=== PATIENT | female | born 1990 | race Caucasian/White ===

== ENCOUNTER 2016-10-29 10:04 | Emergency (ER) | payer MEDICAID ==
[2016-10-29 10:05] VITALS: BMI 27.4
--- NOTE | 2016-10-29 10:44 | C.PDOC ---
History Of Present Illness 26 y/o female presents to ED with c/o pain and swelling to right inguinal area. Patient notes he has felt a lump in the area for 2 months but it has gotten progressively more painful over the past few days. She reports that she had an IVC filter placed in 01/2016. Admits to "always' shaving that area. Otherwise, denies fever, drainage, or other associated symptoms. (-) vaginal discharge or wound. (-) no hernia Time Seen by Provider: 10/29/16 10:28 Chief Complaint (Nursing): Abnormal Skin Integrity History Per: Patient History/Exam Limitations: no limitations Onset/Duration Of Symptoms: Days Current Symptoms Are (Timing): Worse Location Of Injury: Right: Leg (inguinal area) Quality Of Symptoms: Painful, Swollen. denies: Draining Recent travel outside of the [place]: No Past Medical History Reviewed: Historical Data, Nursing Documentation, Vital Signs Vital Signs: Last Vital Signs Temp 97.9 F 10/29/16 13:30 Pulse 78 10/29/16 13:30 Resp 20 10/29/16 15:38 BP 100/65 10/29/16 13:30 Pulse Ox 97 10/29/16 15:16 - Medical History PMH: Anemia, Anxiety, Asthma, Crohn's Disease, Depression, Deep Vein Thrombosis , Gastritis, Gall Bladder Disease (S/P Cholecystectomy), HTN, Kidney Stones, Pulmonary Embolism, Chronic Kidney Disease Surgical History: Cholecystectomy (2008) - [facility] Procedures APPLICATION OF SPLINT (03/24/14) MONITORING NOS (01/20/13) INSERTION OF INTRALUM DEV INTO INF VENA CAVA, PERC APPROACH (02/02/16) Family History: States: Unknown Family Hx, Diabetes - Social History Hx Tobacco Use: Yes Hx Alcohol Use: No Hx Substance Use: No - Immunization History Hx Tetanus Toxoid Vaccination: Yes Hx Influenza Vaccination: No Hx Pneumococcal Vaccination: No Review Of Systems Except As Marked, All Systems Reviewed And Found Negative. Constitutional: Negative for: Fever, Chills Respiratory: Negative for: Cough Skin: Positive for: Other (painful/swollen mass right inguinal area). Negative for: Rash Physical Exam - Physical Exam Appears: Non-toxic, No Acute Distress Skin: Warm, Dry, Other (2.0 cm indurated masses to the right inguinal area, with surrounding erythema ) Head: Atraumatic, Normacephalic Eye(s): bilateral: Normal Inspection, EOMI Nose: Normal Oral Mucosa: Moist Lymphatic: No Inguinal Node Tenderness Chest: Symmetrical Cardiovascular: Rhythm Regular Respiratory: Normal Breath Sounds, No Rales, No Rhonchi, No Wheezing Gastrointestinal/Abdominal: Soft, No Tenderness, No Hernia Back: Normal Inspection Pelvic: Normal External Exam Extremity: Normal ROM, Capillary Refill (< 2 sec.) Extremity: Bilateral: Normal Color And Temperature Pulses: Left Dorsalis Pedis: Normal, Right Dorsalis Pedis: Normal Neurological/Psych: Oriented x3, Normal Speech, Normal Cognition ED Course And Treatment - Laboratory Results Result Diagrams: 10/29/16 11:29 10/29/16 11:29 O2 Sat by Pulse Oximetry: 97 (RA) Pulse Ox Interpretation: Normal - CT Scan/US CT Pelvis w/o contrast Other Rad Studies (CT/US): Read By Radiologist, Radiology Report Reviewed CT/US Interpretation: Accession No. : [id number]. Patient Name / ID : ALFIE RJOO / [id number]. Exam Date : 10/29/2016 13:20:56 ( Approved ). Study Comment : Sex / Age : F / 26Y. Creator : SVETLANA MCELROY. Dictator : [employer]ire Fixer : Director Of Occupational Health : SVETLANA MCELROY. Approver2 : Report Date : 10/29/2016 14:19:00. My Comment : . [facility] Division of Radiology. [address] [place] [address]. Tel. no. . . . Patient Name: ALIA JUDGE . Pt. Address: [address] [place] [address] Rec # : [id number]. [place] [address]: Marylin Mcbride PA-C. Pt Order Location: [facility]. : 1990 Female Age: 26 Order #: [id number]. Reason for exam: Right inguinal swelling, r/o abscess. . . . . . CT Scan. . . PELVIS W/O PO OR IV CONTRAST Exam Date: 10/29/16. . This imaging exam was performed at [facility]. EXAM: CT Pelvis Without Intravenous Contrast. . CLINICAL HISTORY: 26 years old, female; Pain; Pelvic pain; Additional info: Right inguinal. swelling, R/O abscess. Patient allergic to contrast. . TECHNIQUE: Axial computed tomography images of the pelvis without intravenous contrast. This CT exam was performed using one or more of the following dose reduction. techniques: automated exposure control, adjustment of the mA and/or kV. according to patient size, and/or use of iterative reconstruction technique. Coronal and sagittal reformatted images were created and reviewed. . EXAM DATE /TIME: Exam ordered 10/29/2016 10:37 AM. . COMPARISON: CT - ABD PELVIS PO IV CON 02/03/2015 1:48:11 AM. . FINDINGS: Bowel: Unremarkable. No obstruction. No mucosal thickening. Appendix: No findings to suggest acute appendicitis. Intraperitoneal space: Unremarkable. No free air. No significant fluid. collection. Bladder: Unremarkable. No stones. Reproductive: Unremarkable as visualized. Bones/joints: No acute fracture. No dislocation. Soft tissues: There is a fluid collection noted medial to the gracilis. muscle proximally. Fluid collection measures 1.9 x 1.9 x 3.3 cm. There is. inflammatory stranding noted of the overlying subcutaneous fat with what. appears to be a small fistula track connecting to the skin. The inflammatory. stranding is contiguous with and not from the adjacent muscle. The. muscle appears normal in density. Vasculature: Unremarkable. No lower abdominal aortic aneurysm. Lymph nodes: Subcentimeter inguinal lymph nodes are present. . IMPRESSION: 1. Small subcutaneous abscess noted the area of soft tissue swelling. Inflammatory extension into the contiguous myofascial covering of the gracilis. muscle is likely. Progress Note: CT scan and labs ordered, reviewed. Pt notes she is allergic to dye (oral and IV), CT ordered w/o contrast. I&D performed. Packing applied. Instructed wound check in2 days. Case discussed with Dr. Domingo who agreed upon discharge and follow up outpatient. - Incision & Drainage Of Abscess Anesthesia: Lidocaine 1%, With Epi Prep Used: Sterile Water, Betadine Procedure: Incised W/Scalpel Blade#: (11), Drained Pus, Irrigated Cavity W/ Saline, Probed To Break Up Loculations, Packed W/Gauze, Cultures Obtained And Sent To Lab Disposition - Disposition Referrals: Perico Domingo MD [Staff Provider] - Disposition: HOME/ ROUTINE Disposition Time: 15:13 Condition: STABLE Additional Instructions: Do not shave that area. Do not get that area wet. Return to ER in 2 days for re- evaluation. Prescriptions: Cephalexin [cephalexin] 500 mg PO BID #14 cap Sulfamethoxazole/Trimethoprim [Bactrim DS 800 mg-160 mg] 1 tab PO BID #14 tab Instructions: Abscess (ED) - Clinical Impression Clinical Impression: Abscess - PA / HOME STAGER / Resident Statement / has reviewed & agrees with the documentation as recorded. - Scribe Statement The provider has reviewed the documentation as recorded by the Remyibtanisha Waggoner All medical record entries made by the Remyibtanisha were at my direction and personally dictated by me. I have reviewed the chart and agree that the record accurately reflects my personal performance of the history, physical exam, medical decision making, and the department course for this patient. I have also personally directed, reviewed, and agree with the discharge instructions and disposition.
[2016-10-29 11:45] LABS: CHLORIDE 105 mmol/L (98-107); SODIUM 139 mmol/L (132-148)
[2016-10-29 11:46] LABS: POTASSIUM 4.1 mmol/L (3.6-5.2)
[2016-10-29 11:48] LABS: ALB/GLOB RATIO 1.5 (1.0-2.1); ALKALINE PHOSPHATASE 69 U/L (38-126); ALT/SGPT 14 U/L (9-52); AST/SGOT 31 U/L (14-36); BLOOD UREA NITROGEN 9 mg/dL (7-17); CARBON DIOXIDE 21 mmol/L (22-30); GFR AFRICAN-AMERICAN > 60; GLUCOSE,RANDOM 93 mg/dL (65-105)
[2016-10-29 11:49] LABS: CALCIUM 9.2 mg/dl (8.6-10.4)
[2016-10-29 12:06] LABS: BASO % 0.4 % (0.0-2.0); EOS # 0.1 K/uL (0.0-0.7); EOS % 1.5 % (0.0-4.0); HEMATOCRIT 43.3 % (34.0-47.0); LYMPH # 1.9 K/uL (1.0-4.3); LYMPH % 21.6 % (20.0-40.0); MEAN CORPUSCULAR HEMOGLOBIN 30.3 pg (27.0-31.0); MEAN PLATELET VOLUME 11.4 fL (7.2-11.7); MONO # 0.5 K/uL (0.0-0.8); MONO % 5.9 % (0.0-10.0); RED CELL DISTRIBUTION WIDTH 13.6 % (11.5-14.5); WHITE BLOOD COUNT 8.8 K/uL (4.8-10.8)
[2016-10-29 13:36] VITALS: BP 100/65; PULSE 78; TEMP 97.9
--- NOTE | 2016-10-29 14:19 | CT ---
EXAM: CT Pelvis Without Intravenous Contrast CLINICAL HISTORY: 26 years old, female; Pain; Pelvic pain; Additional info: Right inguinal swelling, R/O abscess. Patient allergic to contrast TECHNIQUE: Axial computed tomography images of the pelvis without intravenous contrast. This CT exam was performed using one or more of the following dose reduction techniques: automated exposure control, adjustment of the mA and/or kV according to patient size, and/or use of iterative reconstruction technique. Coronal and sagittal reformatted images were created and reviewed. EXAM DATE/TIME: Exam ordered 10/29/2016 10:37 AM COMPARISON: CT - ABD PELVIS PO IV CON 02/03/2015 1:48:11 AM FINDINGS: Bowel: Unremarkable. No obstruction. No mucosal thickening. Appendix: No findings to suggest acute appendicitis. Intraperitoneal space: Unremarkable. No free air. No significant fluid collection. Bladder: Unremarkable. No stones. Reproductive: Unremarkable as visualized. Bones/joints: No acute fracture. No dislocation. Soft tissues: There is a fluid collection noted medial to the gracilis muscle proximally. Fluid collection measures 1.9 x 1.9 x 3.3 cm. There is inflammatory stranding noted of the overlying subcutaneous fat with what appears to be a small fistula track connecting to the skin. The inflammatory stranding is contiguous with and not from the adjacent muscle. The muscle appears normal in density. Vasculature: Unremarkable. No lower abdominal aortic aneurysm. Lymph nodes: Subcentimeter inguinal lymph nodes are present. IMPRESSION: 1. Small subcutaneous abscess noted the area of soft tissue swelling. Inflammatory extension into the contiguous myofascial covering of the gracilis muscle is likely. Images were attached to this report and are available at [email or web address]
[2016-10-29] MEDS ORDERED: Lidocaine 1% w Epi 1:100,000 Inj INJ ONE (14:30)
[2016-10-29] MEDS ORDERED: cefTRIAXone IV 1 gm in Dextros 50 ML IV ONE (14:30)
[2016-10-29 14:34] VITALS: O2SAT 97
[2016-10-29] MEDS ORDERED: Lidocaine 2% w Epi 1:100,000 Inj IJ ONE (14:37)
[2016-10-29] MEDS ORDERED: cefTRIAXone IV 1 gm in Dextros 50 ML IVPB ONE (14:38)
[2016-10-29] MEDS ORDERED: Morphine 4 MG/ML VIAL ONE (14:44)
[2016-10-29 15:39] VITALS: RESP 20
== END 2016-10-29 15:38 | disposition home or self-care (01) ==
LOC: C.ER 10:04
DX: L02.214 Cutaneous abscess of groin (principal); B95.7 Other staphylococcus as the cause of diseases classified elsewhere
CPT/HCPCS: 10060; 72192; 80053; 85025; 87070; 96374; 99285; J0696; J2270

== ENCOUNTER 2016-11-13 00:48 | Emergency (ER) | payer MEDICAID ==
[2016-11-13 00:49] VITALS: BMI 27.4
[2016-11-13] MEDS ORDERED: Sodium Chloride 0.9% 1,000 ML IV ONE (01:29)
--- NOTE | 2016-11-13 01:29 | C.PDOC ---
History Of Present Illness Patient presents to the ED with complaints of vaginal bleeding and abdominal pain since this morning. Patient states she was wearing a corset today for a couple of hours and felt abdominal pain. Patient denies any fever, chills, nausea, or vomiting. Time Seen by Provider: 11/13/16 01:29 Chief Complaint (Nursing): Female Genitourinary History Per: Patient History/Exam Limitations: no limitations Onset/Duration Of Symptoms: Hrs Current Symptoms Are (Timing): Still Present Severity: Moderate Pain Scale Rating Of: 4 Quality Of Discomfort: "Pain" Associated Symptoms: denies: Fever, Chills, Nausea, Vomiting Recent travel outside of the [place]: No Abnormal Vaginal Bleeding: Yes Past Medical History Reviewed: Historical Data, Nursing Documentation, Vital Signs Vital Signs: Last Vital Signs Temp 98 F 11/13/16 00:57 Pulse 18 L 11/13/16 00:57 Resp 100 H 11/13/16 00:57 BP 111/74 11/13/16 00:57 Pulse Ox 100 11/13/16 04:05 - Medical History PMH: Anemia, Anxiety, Asthma, Crohn's Disease, Depression, Deep Vein Thrombosis , Gastritis, Gall Bladder Disease (S/P Cholecystectomy), HTN, Kidney Stones, Pulmonary Embolism, Chronic Kidney Disease Surgical History: Cholecystectomy (2008) - [facility] Procedures APPLICATION OF SPLINT (03/24/14) MONITORING NOS (01/20/13) INSERTION OF INTRALUM DEV INTO INF VENA CAVA, PERC APPROACH (02/02/16) Family History: States: Unknown Family Hx, Diabetes - Social History Hx Tobacco Use: Yes Hx Alcohol Use: No Hx Substance Use: No - Immunization History Hx Tetanus Toxoid Vaccination: Yes Hx Influenza Vaccination: No Hx Pneumococcal Vaccination: No Review Of Systems Constitutional: Negative for: Fever, Chills Cardiovascular: Negative for: Chest Pain, Palpitations Respiratory: Negative for: Cough, Shortness of Breath Gastrointestinal: Positive for: Abdominal Pain. Negative for: Nausea, Vomiting , Diarrhea Genitourinary: Positive for: Vaginal Bleeding Physical Exam - Physical Exam Appears: Non-toxic, In Acute Distress (patient appears to be in mild discomfort ) Skin: Warm, Dry Head: Atraumatic Oral Mucosa: Moist Neck: Supple Chest: Symmetrical, No Deformity Cardiovascular: Rhythm Regular Respiratory: No Rales, No Rhonchi, No Wheezing Gastrointestinal/Abdominal: Soft, Tenderness (diffuse abdominal tenderness ), No Distention, No Guarding, No Rebound Extremity: Normal ROM, No Tenderness, No Pedal Edema, No Calf Tenderness, Capillary Refill (good capillary refill, less than two seconds ), No Deformity, No Swelling Pulses: Left Dorsalis Pedis: Normal, Right Dorsalis Pedis: Normal Neurological/Psych: Oriented x3 ED Course And Treatment - Laboratory Results Result Diagrams: 11/13/16 01:53 11/13/16 01:55 O2 Sat by Pulse Oximetry: 100 (room air ) Pulse Ox Interpretation: Normal Reevaluation Time: 04:05 Reassessment Condition: Improved Medical Decision Making Medical Decision Making: Upon provider reevaluation patient is feeling better, is medically stable, and requires no further treatment in the ED at this time. Patient will be discharged home with Rx for macrobid and tramadol . Counseling was provided and all questions were answered regarding diagnosis and need for follow up with dr jaime. There is agreement to discharge plan. Return if symptoms persist or worsen. Disposition Counseled Patient/Family Regarding: Studies Performed, Diagnosis, Need For Followup, Rx Given - Disposition Referrals: Perico Jaime MD [Staff Provider] - Disposition: HOME/ ROUTINE Disposition Time: 01:29 Condition: FAIR Additional Instructions: Please return if symptoms recur Prescriptions: Nitrofurantoin Macrocrystals [Macrobid] 1 cap PO BID #14 cap RX: traMADol [Ultram] 50 mg PO TID #15 tab Instructions: Urinary Tract Infection in Women (DC) - Clinical Impression Clinical Impression: UTI (urinary tract infection) - Scribe Statement The provider has reviewed the documentation as recorded by the Scribtanisha De Santiago All medical record entries made by the Scribe were at my direction and personally dictated by me. I have reviewed the chart and agree that the record accurately reflects my personal performance of the history, physical exam, medical decision making, and the department course for this patient. I have also personally directed, reviewed, and agree with the discharge instructions and disposition.
[2016-11-13 01:31] LABS: HCG,QUALITATIVE URINE NEGATIVE (NEGATIVE); SQUAMOUS EPITHIAL 54 /hpf (0-5); URINE BILIRUBIN NEGATIVE (NEGATIVE); URINE BLOOD 3+ (NEGATIVE); URINE CLARITY Hazy (Clear); URINE COLOR Yellow (YELLOW); URINE GLUCOSE (UA) NORMAL (Normal); URINE LEUKOCYTE ESTERASE 3+ Leu/uL (Negative); URINE NITRATE NEGATIVE (NEGATIVE); URINE PROTEIN 1+ mg/dL (NEGATIVE); URINE UROBILINOGEN NORMAL mg/dL (0.2-1.0)
[2016-11-13] MEDS ORDERED: Piperacillin/Tazobact 3.375 gm 100 ML IVPB STA (01:39)
[2016-11-13] MEDS ORDERED: Piperacillin/Tazobact 3.375 gm 100 ML IVPB ONE (01:56)
[2016-11-13 01:57] LABS: BASO % 0.4 % (0.0-2.0); EOS # 0.2 K/uL (0.0-0.7); MEAN CELL VOLUME 90.6 fL (81.0-99.0); MEAN CORPUSCULAR HEMOGLOBIN 30.5 pg (27.0-31.0); MEAN CORPUSCULAR HGB CONC 33.7 g/dL (33.0-37.0); MEAN PLATELET VOLUME 11.6 fL (7.2-11.7); MONO # 0.4 K/uL (0.0-0.8); MONO % 5.2 % (0.0-10.0); NEUT # 4.8 K/uL (1.8-7.0); NEUT % 56.4 % (50.0-75.0); NRBC % 0.1 % (0.0-2.0); RBC 4.26 Mil/uL (3.80-5.20); RED CELL DISTRIBUTION WIDTH 13.3 % (11.5-14.5); WHITE BLOOD COUNT 8.4 K/uL (4.8-10.8)
[2016-11-13] MEDS ORDERED: Sodium Chloride 0.9% 1,000 ML ONE (02:05)
[2016-11-13 02:09] LABS: ALBUMIN 4.3 g/dL (3.5-5.0)
[2016-11-13 02:12] LABS: ALB/GLOB RATIO 1.2 (1.0-2.1); AST/SGOT 38 U/L (14-36); GFR AFRICAN-AMERICAN > 60; GFR NON-AFRICAN AMERICAN > 60
[2016-11-13 02:13] LABS: ALT/SGPT 29 U/L (9-52); BLOOD UREA NITROGEN 16 mg/dL (7-17); LIPASE 81 U/L (23-300)
[2016-11-13 04:39] VITALS: BP 100/63; PULSE 80; RESP 20; TEMP 97.5; O2SAT 99
== END 2016-11-13 04:39 | disposition home or self-care (01) ==
LOC: C.ER 00:48
DX: N39.0 Urinary tract infection, site not specified (principal)
CPT/HCPCS: 80053; 81001; 83690; 84703; 85025; 86850; 86900; 87086; 96365; 96375; 99284; J1885; J2543; J7040

== ENCOUNTER 2016-11-19 12:08 | Emergency (ER) | payer MEDICAID ==
[2016-11-19 12:52] VITALS: BMI 28.3
[2016-11-19 12:55] VITALS: TEMP 98.7
[2016-11-19] MEDS ORDERED: guaiFENesin 100 mg/5 ml Syrup UD PO STA (13:09)
--- NOTE | 2016-11-19 13:10 | C.PDOC ---
History Of Present Illness 26 y/o female presents to the ED with complaints of coryza, nonproductive cough and nasal congestion x1 week with associated chest discomfort. Pt reports sick contacts with similar symptoms. Pt also with draining wound to right groin, incised and packed recently, packing fell out and pt has completed abx. Denies fever, chills, vomiting or any other complaints, Time Seen by Provider: 11/19/16 12:59 Chief Complaint (Nursing): Cough, Cold, Congestion History Per: Patient History/Exam Limitations: no limitations Onset/Duration Of Symptoms: Days Current Symptoms Are (Timing): Still Present Location Of Pain: None Sick Contacts (Context): Family Member(s) Associated Symptoms: Cough, Nasal Congestion. denies: Fever, Chills, Sputum, Vomiting Severity: Mild Recent travel outside of the [place]: No Past Medical History Reviewed: Historical Data, Nursing Documentation, Vital Signs Vital Signs: Last Vital Signs Temp 98.7 F 11/19/16 12:54 Pulse 89 11/19/16 13:30 Resp 18 11/19/16 13:30 BP 124/75 11/19/16 13:30 Pulse Ox 98 11/19/16 13:30 - Medical History PMH: Anemia, Anxiety, Asthma, Crohn's Disease, Depression, Deep Vein Thrombosis , Gastritis, Gall Bladder Disease (S/P Cholecystectomy), HTN, Kidney Stones, Pulmonary Embolism, Chronic Kidney Disease Surgical History: Cholecystectomy (2008) - [facility] Procedures APPLICATION OF SPLINT (03/24/14) MONITORING NOS (01/20/13) INSERTION OF INTRALUM DEV INTO INF VENA CAVA, PERC APPROACH (02/02/16) Family History: States: Unknown Family Hx, Diabetes - Social History Hx Tobacco Use: Yes Hx Alcohol Use: No Hx Substance Use: No - Immunization History Hx Tetanus Toxoid Vaccination: Yes Hx Influenza Vaccination: No Hx Pneumococcal Vaccination: No Review Of Systems Except As Marked, All Systems Reviewed And Found Negative. Constitutional: Negative for: Fever, Chills ENT: Positive for: Nose Congestion Cardiovascular: Positive for: Other (chest discomfort) Respiratory: Positive for: Cough. Negative for: Shortness of Breath, Sputum Gastrointestinal: Negative for: Vomiting Skin: Positive for: Other (draining wound right groin) Physical Exam - Physical Exam Appears: Non-toxic, No Acute Distress Skin: Warm, Dry, No Rash Head: Atraumatic, Normacephalic Ear(s): Bilateral: Normal Nose: Normal Oral Mucosa: Moist Throat: Normal, No Erythema Neck: Normal, Normal ROM, Supple Chest: Symmetrical, Tenderness (digitally reproducible pain to sternum) Cardiovascular: Rhythm Regular, No Murmur Respiratory: Normal Breath Sounds, No Rales, No Rhonchi, No Wheezing Extremity: Other (Right groin with 1 cm area draining clear serosanguanous fluid , no fluctuance or pus; Chaperoned by CRISTOBAL Soriano.) Neurological/Psych: Oriented x3, Normal Speech ED Course And Treatment O2 Sat by Pulse Oximetry: 97 (room air) Pulse Ox Interpretation: Normal Medical Decision Making Medical Decision Making: c/c/c, multiple sick contacts @ home with same. OTC flu/cold meds instructed Resolving R groin abscess, small drainage, nothing to I&D today daily cleaning/bandage educated. Disposition Doctor Will See Patient In The: Office Counseled Patient/Family Regarding: Studies Performed, Diagnosis - Disposition Referrals: [facility] [Outside] Disposition: HOME/ ROUTINE Disposition Time: 13:10 Condition: GOOD Additional Instructions: OTC flu/cold meds avoid cigarette smoking as much as possible Wound: Daily wash with soap and water Bacitracin ointment and clean bandage daily. Instructions: Chronic Wound Care (ED), Viral Syndrome (ED) - Clinical Impression Clinical Impression: Influenza-like illness, Wound of skin - Scribe Statement The provider has reviewed the documentation as recorded by the Marjorie gallardo Provider Attestation: All medical record entries made by the Marjorie were at my direction and personally dictated by me. I have reviewed the chart and agree that the record accurately reflects my personal performance of the history, physical exam, medical decision making, and the department course for this patient. I have also personally directed, reviewed, and agree with the discharge instructions and disposition.
[2016-11-19] MEDS ORDERED: Bacitracin 500 Units/gm Oint Foilpak UD ONE (13:12)
[2016-11-19] MEDS ORDERED: guaiFENesin 100 mg/5 ml Syrup UD ONE (13:12)
[2016-11-19 13:31] VITALS: BP 124/75; PULSE 89; RESP 18
[2016-11-19 13:44] VITALS: O2SAT 97
== END 2016-11-19 13:31 | disposition home or self-care (01) ==
LOC: SUPCPDRO 12:08 → C.ER 12:08
DX: J11.1 Influenza due to unidentified influenza virus with other respiratory manifestations (principal); S31.103D Unspecified open wound of abdominal wall, right lower quadrant without penetration into peritoneal cavity, subsequent encounter; X58.XXXD Exposure to other specified factors, subsequent encounter

== ENCOUNTER 2016-12-22 20:04 | Emergency (ER) | payer MEDICAID ==
[2016-12-22 20:05] VITALS: BMI 28.3
--- NOTE | 2016-12-22 20:29 | C.PDOC ---
History Of Present Illness Patient presents to the ED with complaints of right flank pain radiating to RLQ with some associated nausea and dysuria beginning yesterday that has worsening through the day. Patient denies fever,chills, or nausea. Time Seen by Provider: 12/22/16 20:29 Chief Complaint (Nursing): Female Genitourinary History Per: Patient History/Exam Limitations: no limitations Onset/Duration Of Symptoms: Days (1 day), Worse Since (worsening today) Current Symptoms Are (Timing): Still Present Severity: Moderate Pain Scale Rating Of: 5 Quality Of Discomfort: Sharp, Stabbing Alleviating Factors: None Recent travel outside of the [place]: No Abnormal Vaginal Bleeding: No Past Medical History Reviewed: Historical Data, Nursing Documentation, Vital Signs Vital Signs: Last Vital Signs Temp 98.0 F 12/22/16 23:39 Pulse 60 12/22/16 23:39 Resp 16 12/22/16 23:39 BP 101/60 12/22/16 23:39 Pulse Ox 99 12/22/16 23:39 - Medical History PMH: Anemia, Anxiety, Asthma, Crohn's Disease, Depression, Deep Vein Thrombosis , Gastritis, Gall Bladder Disease (S/P Cholecystectomy), HTN, Kidney Stones, Pulmonary Embolism, Chronic Kidney Disease Surgical History: Cholecystectomy (2008) - [facility] Procedures APPLICATION OF SPLINT (03/24/14) MONITORING NOS (01/20/13) INSERTION OF INTRALUM DEV INTO INF VENA CAVA, PERC APPROACH (02/02/16) Family History: States: Unknown Family Hx, Diabetes - Social History Hx Tobacco Use: Yes Hx Alcohol Use: No Hx Substance Use: No - Immunization History Hx Tetanus Toxoid Vaccination: Yes Hx Influenza Vaccination: No Hx Pneumococcal Vaccination: No Review Of Systems Constitutional: Negative for: Fever, Chills Cardiovascular: Negative for: Chest Pain Respiratory: Negative for: Shortness of Breath Gastrointestinal: Positive for: Nausea, Abdominal Pain (right flank radiating to RLQ). Negative for: Vomiting, Diarrhea Genitourinary: Positive for: Dysuria. Negative for: Hematuria, Vaginal Bleeding Physical Exam - Physical Exam Appears: Non-toxic, No Acute Distress, Other (Patient is tolerating PO ) Skin: Warm, Dry Head: Atraumatic Eye(s): bilateral: Normal Inspection Oral Mucosa: Moist Neck: Supple Chest: Symmetrical Cardiovascular: Rhythm Regular Respiratory: No Rales, No Rhonchi, No Wheezing Gastrointestinal/Abdominal: Soft, Tenderness (Right flank area tenderness radiating to right groin area. ), No Distention, No Guarding, No Rebound Neurological/Psych: Oriented x3 ED Course And Treatment - Laboratory Results Result Diagrams: 12/22/16 20:56 12/22/16 20:56 O2 Sat by Pulse Oximetry: 98 (room air ) Pulse Ox Interpretation: Normal Reevaluation Time: 23:43 Reassessment Condition: Improved Disposition Counseled Patient/Family Regarding: Studies Performed, Diagnosis, Need For Followup - Disposition Referrals: Perico Domingo MD [Staff Provider] - Disposition: HOME/ ROUTINE Disposition Time: 20:29 Condition: FAIR Prescriptions: Nitrofurantoin Macrocrystals [Macrobid] 1 cap PO BID #14 cap Instructions: Ovarian Cyst (ED), Urinary Tract Infection in Women (DC) Forms: [facility] (Tunisian) - Clinical Impression Clinical Impression: Abdominal pain, Ovarian cyst, UTI (urinary tract infection) - Scribe Statement The provider has reviewed the documentation as recorded by the Scribe Kathy De Santiago All medical record entries made by the Scribe were at my direction and personally dictated by me. I have reviewed the chart and agree that the record accurately reflects my personal performance of the history, physical exam, medical decision making, and the department course for this patient. I have also personally directed, reviewed, and agree with the discharge instructions and disposition.
[2016-12-22] MEDS ORDERED: Sodium Chloride 0.9% 1,000 ML IV ONE ×2 (20:31→21:55)
[2016-12-22 20:56] LABS: URINE BILIRUBIN NEGATIVE (NEGATIVE); URINE BLOOD NEGATIVE (NEGATIVE); URINE COLOR Yellow (YELLOW); URINE GLUCOSE (UA) NORMAL (Normal); URINE KETONE NEGATIVE (NEGATIVE); URINE LEUKOCYTE ESTERASE NEG Leu/uL (Negative); URINE PROTEIN NEGATIVE (NEGATIVE); URINE UROBILINOGEN NORMAL mg/dL (0.2-1.0); WBC URINE < 1 /hpf (0-5)
[2016-12-22] MEDS ORDERED: Sodium Chloride 0.9% 1,000 ML ONE (20:58)
[2016-12-22 21:02] LABS: BASO % 0.4 % (0.0-2.0); EOS # 0.1 K/uL (0.0-0.7); EOS % 1.6 % (0.0-4.0); HEMATOCRIT 40.2 % (34.0-47.0); LYMPH # 2.9 K/uL (1.0-4.3); LYMPH % 33.9 % (20.0-40.0); MEAN CELL VOLUME 89.4 fL (81.0-99.0); MEAN CORPUSCULAR HEMOGLOBIN 30.6 pg (27.0-31.0); MEAN CORPUSCULAR HGB CONC 34.2 g/dL (33.0-37.0); MEAN PLATELET VOLUME 11.5 fL (7.2-11.7); MONO # 0.6 K/uL (0.0-0.8); MONO % 6.4 % (0.0-10.0); RED CELL DISTRIBUTION WIDTH 13.7 % (11.5-14.5); WHITE BLOOD COUNT 8.6 K/uL (4.8-10.8)
[2016-12-22 21:14] LABS: CHLORIDE 101 mmol/L (98-107); POTASSIUM 3.4 mmol/L (3.6-5.2); SODIUM 141 mmol/L (132-148)
[2016-12-22 21:16] LABS: BILIRUBIN,TOTAL 0.4 mg/dL (0.2-1.3); GFR AFRICAN-AMERICAN > 60
[2016-12-22 21:17] LABS: ALB/GLOB RATIO 1.3 (1.0-2.1); ALKALINE PHOSPHATASE 94 U/L (38-126); ALT/SGPT 24 U/L (9-52); AST/SGOT 29 U/L (14-36); BLOOD UREA NITROGEN 11 mg/dL (7-17); CALCIUM 9.6 mg/dl (8.6-10.4); CARBON DIOXIDE 25 mmol/L (22-30); GLUCOSE,RANDOM 90 mg/dL (65-105); TOTAL PROTEIN 7.7 g/dL (6.3-8.3)
[2016-12-22] MEDS ORDERED: Potassium Chloride 10 mEq ER Tab PO STA (21:57)
[2016-12-22] MEDS ORDERED: Potassium Chloride 20 mEq ER Tab PO ONE (22:16)
[2016-12-22] MEDS ORDERED: Morphine 4 MG/ML VIAL ONE (22:16)
--- NOTE | 2016-12-22 23:01 | CT ---
EXAM: CT Abdomen and Pelvis Without Intravenous Contrast CLINICAL HISTORY: 26 years old, female; Pain; Abdominal pain; Flank; Right; Additional info: R flank pain TECHNIQUE: Axial computed tomography images of the abdomen and pelvis without intravenous contrast. All CT scans at this facility use one or more dose reduction techniques, viz.: automated exposure control; ma/kV adjustment per patient size (including targeted exams where dose is matched to indication; i.e. head); or iterative reconstruction technique. Coronal and sagittal reformatted images were created and reviewed. EXAM DATE/TIME: 12/22/2016 9:55 PM COMPARISON: US - OB , LIMITED 09/22/2015 6:56:18 AM FINDINGS: IVC filter. Cholecystectomy clips are present. The liver is borderline prominent. The spleen is prominent. The adrenals and pancreas appear grossly normal on this non-contrast study. No perinephric stranding. No hydronephrosis. No obstructing calculi. The bowel appears grossly normal. A normal appendix is identified axial image [id number], coronal images 45 - 55. There is suggestion of a 2 cm right ovarian cyst. Evaluation of the ovaries is limited on noncontrast CT . The uterus is prominent. Small inguinal lymph nodes are noted. IMPRESSION: Probable right ovarian cyst.
[2016-12-22] MEDS ORDERED: HYDROmorphone 1 mg/ml ISec IVP STA (23:16)
[2016-12-22] MEDS ORDERED: HYDROmorphone 1 mg/ml ISec ONE (23:32)
[2016-12-22 23:40] VITALS: BP 101/60; PULSE 60; RESP 16; TEMP 98
[2016-12-22 23:46] VITALS: O2SAT 98
== END 2016-12-23 00:27 | disposition home or self-care (01) ==
LOC: C.ER 20:04
DX: N83.209 Unspecified ovarian cyst, unspecified side (principal); N39.0 Urinary tract infection, site not specified; E87.6 Hypokalemia
CPT/HCPCS: 74176; 80053; 81001; 83690; 84703; 85025; 87086; 96361; 96374; 96375; 99284; J1170; J1885; J2270; J2405; J7040

== ENCOUNTER 2017-01-16 19:54 | Emergency (ER) | payer MEDICAID ==
[2017-01-16 19:54] VITALS: BMI 28.3
--- NOTE | 2017-01-16 21:07 | C.PDOC ---
History Of Present Illness Irma is a 26 y/o female with a past medical history of DVT, PE, ovarian cyst, kidney stones, Crohns disease, and depression, who presents to the ED complaining of right flank pain, daily for 3 weeks. Pain is associated with dysuria and vomiting after meals, worsens with movement. Patient last ate at 6: 30 and is attempting to keep the meal down. Denies fever, chills, vaginal discharge or bleeding. Took Motrin and Tylenol with some relief. LMP was 01/11. Of note, patient was seen here on 12/22 for same complaints, had CT and labs, and was diagnosed with an ovarian cyst and UTI. PMD: Perico Domingo Time Seen by Provider: 01/16/17 20:25 Chief Complaint (Nursing): Abdominal Pain History Per: Patient History/Exam Limitations: no limitations Onset/Duration Of Symptoms: Days (x 2) Current Symptoms Are (Timing): Still Present Location Of Pain/Discomfort: RUQ, RLQ Radiation Of Pain To:: Back Past Medical History Reviewed: Historical Data, Nursing Documentation, Vital Signs Vital Signs: Last Vital Signs Temp 98.3 F 01/16/17 20:03 Pulse 82 01/16/17 20:03 Resp 20 01/16/17 20:03 BP 123/73 01/16/17 20:03 Pulse Ox 97 01/16/17 23:37 - Medical History PMH: Anemia, Anxiety, Asthma, Crohn's Disease, Depression, Deep Vein Thrombosis (BOTH LEGS), Gastritis, Gall Bladder Disease (S/P Cholecystectomy), HTN, Kidney Stones, Pulmonary Embolism, Chronic Kidney Disease Surgical History: Cholecystectomy (2008) - [facility] Procedures APPLICATION OF SPLINT (03/24/14) MONITORING NOS (01/20/13) INSERTION OF INTRALUM DEV INTO INF VENA CAVA, PERC APPROACH (02/02/16) Family History: States: Unknown Family Hx, Diabetes - Social History Hx Tobacco Use: Yes Hx Alcohol Use: No Hx Substance Use: No - Immunization History Hx Tetanus Toxoid Vaccination: Yes Hx Influenza Vaccination: No Hx Pneumococcal Vaccination: No Review Of Systems Except As Marked, All Systems Reviewed And Found Negative. Constitutional: Negative for: Fever, Chills Gastrointestinal: Positive for: Vomiting (after meals), Abdominal Pain Genitourinary: Positive for: Dysuria Musculoskeletal: Positive for: Back Pain (right flank) Physical Exam - Physical Exam Appears: Well, Non-toxic, No Acute Distress Skin: Normal Color, Warm, Dry Head: Atraumatic, Normacephalic Eye(s): bilateral: Normal Inspection, PERRL, EOMI Nose: Normal Oral Mucosa: Moist Neck: Normal, Normal ROM Chest: Symmetrical Cardiovascular: Rhythm Regular (Slightly tachycardic), No Friction Rub, No Murmur, No Other (Gallop) Respiratory: Normal Breath Sounds (clear to auscultation bilaterally), No Accessory Muscle Use Gastrointestinal/Abdominal: Bowel Sounds (+ all 4 quadrants), Soft, Tenderness ( tenderness to the RLQ and RUQ), No Other (Palomo's sign) Back: CVA Tenderness (right-sided) Extremity: Normal ROM, No Deformity Neurological/Psych: Oriented x3, Normal Speech Gait: Steady ED Course And Treatment - Laboratory Results Result Diagrams: 01/16/17 21:25 01/16/17 21:25 Lab Interpretation: Normal O2 Sat by Pulse Oximetry: 97 Pulse Ox Interpretation: Normal - CT Scan/US CT abd/pel Other Rad Studies (CT/US): Read By Radiologist, Radiology Report Reviewed CT/US Interpretation: FINDINGS: Lower thorax: unremarkable. ABDOMEN: Liver: unremarkable. Gallbladder and bile ducts: Gallbladder is absent. Common duct is unremarkable. Pancreas: unremarkable. Spleen: Spleen is mildly enlarged. Adrenals: unremarkable. Kidneys and ureters: unremarkable. Stomach and bowel: The stomach is partially distended. Rotation is normal. There is no obstruction. Appendix and terminal ileum are unremarkable. Colon is incompletely distended which limits. evaluation. Appendix: See stomach and bowel. PELVIS: Bladder: unremarkable. Reproductive: Uterus and adnexal structures are unremarkable. ABDOMEN and PELVIS: Intraperitoneal space: There is no free air.There is no significant fluid. Bones/joints: There are no acute osseous abnormalities The bony structures. Soft tissues: There is rectus diastases. There is a very tiny fat containing umbilical hernia. Vasculature: Aorta is unremarkable. There is an IVC filter. Lymph nodes: There is no pathologic adenopathy. IMPRESSION: No acute solid visceral or bowel abnormality ; no CT findings of appendicitis; prior. cholecystectomy; IVC filter; mild splenomegaly Progress Note: 21:08. Ordered repeat blood work, urine, and CT Abdomen/Pelvis. Reevaluation Time: 23:35 Reassessment Condition: Improved (after po Naprosyn sleeping quietly) Disposition Counseled Patient/Family Regarding: Studies Performed, Diagnosis, Need For Followup, Rx Given - Disposition Referrals: Perico Domingo MD [Staff Provider] - [facility] [Outside] Disposition: HOME/ ROUTINE Disposition Time: 23:39 Condition: IMPROVED Prescriptions: Naproxen [Naprosyn] 1 tab PO BID PRN #25 tab PRN Reason: Pain Instructions: Pelvic Pain in Women (ED), Flank Pain (ED) Forms: [employer] (Spanish) - Clinical Impression Clinical Impression: Right flank pain - Scribe Statement The provider has reviewed the documentation as recorded by the Scribtanisha Mendoza All medical record entries made by the Scribe were at my direction and personally dictated by me. I have reviewed the chart and agree that the record accurately reflects my personal performance of the history, physical exam, medical decision making, and the department course for this patient. I have also personally directed, reviewed, and agree with the discharge instructions and disposition.
[2017-01-16 21:31] LABS: BASO % 0.3 % (0.0-2.0); EOS # 0.2 K/uL (0.0-0.7); EOS % 1.8 % (0.0-4.0); HEMATOCRIT 40.2 % (34.0-47.0); LYMPH # 2.8 K/uL (1.0-4.3); LYMPH % 34.4 % (20.0-40.0); MEAN CELL VOLUME 90.8 fL (81.0-99.0); MEAN CORPUSCULAR HGB CONC 34.1 g/dL (33.0-37.0); MEAN PLATELET VOLUME 11.8 fL (7.2-11.7); MONO # 0.6 K/uL (0.0-0.8); MONO % 6.9 % (0.0-10.0); RED CELL DISTRIBUTION WIDTH 13.3 % (11.5-14.5); WHITE BLOOD COUNT 8.3 K/uL (4.8-10.8)
[2017-01-16 21:36] LABS: RBC URINE 1 /hpf (0-3); URINE BACTERIA OCC (<OCC); URINE BILIRUBIN NEGATIVE (NEGATIVE); URINE BLOOD NEGATIVE (NEGATIVE); URINE COLOR Yellow (YELLOW); URINE GLUCOSE (UA) NORMAL (Normal); URINE KETONE NEGATIVE (NEGATIVE); URINE PROTEIN NEGATIVE (NEGATIVE); URINE UROBILINOGEN NORMAL mg/dL (0.2-1.0)
[2017-01-16 21:37] LABS: WBC URINE 6 /hpf (0-5)
[2017-01-16 21:39] LABS: URINE LEUKOCYTE ESTERASE 1+ Leu/uL (Negative)
[2017-01-16 21:41] LABS: ALB/GLOB RATIO 1.3 (1.0-2.1); ALKALINE PHOSPHATASE 87 U/L (38-126); ALT/SGPT 26 U/L (9-52); AST/SGOT 23 U/L (14-36); BILIRUBIN,TOTAL 0.4 mg/dL (0.2-1.3); BLOOD UREA NITROGEN 13 mg/dL (7-17); CALCIUM 9.5 mg/dl (8.6-10.4); CARBON DIOXIDE 25 mmol/L (22-30); CHLORIDE 104 mmol/L (98-107); GFR AFRICAN-AMERICAN > 60; GLUCOSE,RANDOM 86 mg/dL (65-105); POTASSIUM 3.6 mmol/L (3.6-5.2); SODIUM 142 mmol/L (132-148); TOTAL PROTEIN 7.6 g/dL (6.3-8.3)
[2017-01-16] MEDS ORDERED: Naproxen 550 mg Tab PO STA (22:21)
[2017-01-16] MEDS ORDERED: Naproxen 550 mg Tab PO ONE (22:27)
--- NOTE | 2017-01-16 23:01 | CT ---
EXAM: CT Abdomen and Pelvis Without Intravenous Contrast EXAM DATE/TIME: 01/16/2017 9:09 PM heart size is normal. Lung bases are clear. CLINICAL HISTORY: 26 years old, female; Pain; Abdominal pain; Flank; Right lower quadrant (rlq); Additional info: Abd pain TECHNIQUE: Axial computed tomography images of the abdomen and pelvis without intravenous contrast. All CT scans at this facility use one or more dose reduction techniques, viz.: automated exposure control; ma/kV adjustment per patient size (including targeted exams where dose is matched to indication; i.e. head); or iterative reconstruction technique. Coronal and sagittal reformatted images were created and reviewed. COMPARISON: CT - ABD PELVIS W/O PO OR IV CONT 12/22/2016 10:07:18 PM FINDINGS: Lower thorax: unremarkable ABDOMEN: Liver: unremarkable Gallbladder and bile ducts: Gallbladder is absent. Common duct is unremarkable. Pancreas: unremarkable Spleen: Spleen is mildly enlarged. Adrenals: unremarkable Kidneys and ureters: unremarkable Stomach and bowel: The stomach is partially distended. Rotation is normal. There is no obstruction. Appendix and terminal ileum are unremarkable. Colon is incompletely distended which limits evaluation. Appendix: See stomach and bowel PELVIS: Bladder: unremarkable Reproductive: Uterus and adnexal structures are unremarkable. ABDOMEN and PELVIS: Intraperitoneal space: There is no free air.There is no significant fluid. Bones/joints: There are no acute osseous abnormalities The bony structures Soft tissues: There is rectus diastases. There is a very tiny fat containing umbilical hernia. Vasculature: Aorta is unremarkable. There is an IVC filter. Lymph nodes: There is no pathologic adenopathy. IMPRESSION: No acute solid visceral or bowel abnormality; no CT findings of appendicitis; prior cholecystectomy; IVC filter; mild splenomegaly
[2017-01-16 23:42] VITALS: BP 109/70; PULSE 75; RESP 16; TEMP 98.4; O2SAT 98
== END 2017-01-16 23:49 | disposition home or self-care (01) ==
LOC: C.ER 19:54
DX: R10.9 Unspecified abdominal pain (principal)

== ENCOUNTER → 2017-01-28 20:09 | Emergency (ER) | payer MEDICAID ==
[2017-01-28 20:10] VITALS: BMI 28.3
== END | disposition left against medical advice (07) ==
LOC: C.ER 20:09
DX: Z02.89 Encounter for other administrative examinations (principal)

== ENCOUNTER 2017-02-03 20:24 | Emergency (ER) | payer MEDICAID ==
[2017-02-03 20:24] VITALS: BMI 28.3
[2017-02-03 20:42] VITALS: TEMP 98.7
--- NOTE | 2017-02-03 21:08 | C.PDOC ---
History Of Present Illness 26 y/o female who presents to the ED complaining of right arm and elbow pain for the past few days. Patient reports that as a child she had a fracture on her right arm, which required surgery but never underwent the surgery. She occasionally gets pain to the arm. Patient reports bumping her elbow on the table and the sharp pain became worse. Patient denies other complaints. Elbow cannot fully extend at baseline. Time Seen by Provider: 02/03/17 20:51 Chief Complaint (Nursing): Upper Extremity Problem/Injury History Per: Patient History/Exam Limitations: no limitations Onset/Duration Of Symptoms: Persistent Current Symptoms Are (Timing): Worse Quality: Sharp Exacerbating Factor(s): Movement, Worse At Night Past Medical History Reviewed: Historical Data, Nursing Documentation, Vital Signs Vital Signs: Last Vital Signs Temp 98.7 F 02/03/17 20:37 Pulse 85 02/03/17 21:51 Resp 16 02/03/17 21:51 BP 128/79 02/03/17 21:51 Pulse Ox 99 02/03/17 21:51 - Medical History PMH: Anemia, Anxiety, Asthma, Crohn's Disease, Depression, Deep Vein Thrombosis (BOTH LEGS), Gastritis, Gall Bladder Disease (S/P Cholecystectomy), HTN, Kidney Stones, Pulmonary Embolism, Chronic Kidney Disease Surgical History: Cholecystectomy (2008) - [facility] Procedures APPLICATION OF SPLINT (03/24/14) MONITORING NOS (01/20/13) INSERTION OF INTRALUM DEV INTO INF VENA CAVA, PERC APPROACH (02/02/16) Family History: States: Unknown Family Hx, Diabetes - Social History Hx Tobacco Use: Yes Hx Alcohol Use: No Hx Substance Use: No - Immunization History Hx Tetanus Toxoid Vaccination: Yes Hx Influenza Vaccination: No Hx Pneumococcal Vaccination: No Review Of Systems Constitutional: Negative for: Fever Cardiovascular: Negative for: Chest Pain Respiratory: Negative for: Shortness of Breath Gastrointestinal: Negative for: Nausea, Vomiting Musculoskeletal: Positive for: Arm Pain (right arm and elbow pain) Physical Exam - Physical Exam Appears: Well, Non-toxic, No Acute Distress Skin: Normal Color, Warm, Dry, No Rash, No Ecchymosis Head: Atraumatic, Normacephalic Eye(s): bilateral: Normal Inspection Nose: Normal Oral Mucosa: Moist Neck: Normal ROM Chest: Symmetrical Extremity: Normal ROM, Tenderness (right elbow lateral tenderness), No Swelling , Other (cannot fully extend, baseline) Neurological/Psych: Oriented x3, Normal Speech Gait: Steady ED Course And Treatment O2 Sat by Pulse Oximetry: 98 (room air) Pulse Ox Interpretation: Normal Medical Decision Making Medical Decision Making: Impression: 26 y/o female with tenderness on elbow Plan: -- Right elbow x-ray -- Toradol -- Reassess and disposition Progress Notes: Xray shows chronic bony irregularity, no acute fracture Patient given arm sling and stable for discharge. Given follow up instructions Disposition Counseled Patient/Family Regarding: Diagnosis, Need For Followup - Disposition Referrals: Ronak Oliveira III, MD [Staff Provider] - Disposition: HOME/ ROUTINE Disposition Time: 21:38 Condition: STABLE Additional Instructions: Your xray was normal, no fracture but has arthritic changes. Take Naproxen as needed for pain every 6 hours, and tramadol for more severe pain. Follow up with orthopedic if pain persists and may need physical therapy. Prescriptions: Naproxen [Naprosyn] 1 tab PO BID PRN #25 tab PRN Reason: Pain traMADol [Ultram] 50 mg PO Q12 #10 tab Instructions: Arthralgia (ED) Forms: [employer] (Armenian) - POA Present On Arrival: None - Clinical Impression Clinical Impression: Arthralgia of elbow, right - Scribe Statement The provider has reviewed the documentation as recorded by the Scribe 02/03/2017 Scribe Attestation: Carmen Martinez MD Scribe Attestation: All medical record entries made by the Scribe were at my direction and personally dictated by me. I have reviewed the chart and agree that the record accurately reflects my personal performance of the history, physical exam, medical decision making, and the department course for this patient. I have also personally directed, reviewed, and agree with the discharge instructions and disposition.
[2017-02-03 21:52] VITALS: BP 128/79; PULSE 85; RESP 16
--- NOTE | 2017-02-04 10:33 | RAD ---
Right elbow three views History: Pain. Injury. Comparison: None available. Findings: Marked bony irregularity noted at the level of the distal humerus at the location of the trochlea with 3 prominent ossific densities noted measuring 1.2 centimeters, 0.9 centimeters, and 1.4 centimeters. Associated sclerosis and bony irregularity of the fragments. These fragments appear to pseudoarticulate with the remnant humeral shaft. There is involvement of the joint space. These deformities are of uncertain clinical etiology and may be related to chronic fracture deformity versus underlying chronic inflammatory and or infectious process and or additional etiology. Questionable small elbow joint effusion which may represent superimposed acute on chronic changes. Radial head is located articulating with the capitellum. Impression: Marked bony irregularity noted at the level of the distal humerus at the location of the trochlea with 3 prominent ossific densities noted measuring 1.2 centimeters, 0.9 centimeters, and 1.4 centimeters. Associated sclerosis and bony irregularity of the fragments. These fragments appear to pseudoarticulate with the remnant humeral shaft. There is involvement of the joint space. These deformities are of uncertain clinical etiology and may be related to chronic fracture deformity versus underlying chronic inflammatory and or infectious process and or additional etiology. Questionable small elbow joint effusion which may represent superimposed acute on chronic changes. Correlation with MRI would be helpful for further evaluation and to better determine any acute pathology.
[2017-02-05 14:07] VITALS: O2SAT 98
== END 2017-02-03 21:51 | disposition home or self-care (01) ==
LOC: C.ER 20:24
DX: M25.521 Pain in right elbow (principal)
CPT/HCPCS: 73080; 96372; 99283; J1885